=== PATIENT | female | born 1965 | race Caucasian/White ===

== ENCOUNTER 2017-01-31 11:02 | Emergency (ER) | payer BC ==
[~2017-01-31] VITALS: Ht 165.1 cm; Wt 62.0 kg
[2017-01-31 11:11] VITALS: BP 122/77; PULSE 84; RESP 16; TEMP 98.2; O2SAT 98
--- NOTE | 2017-01-31 11:27 | PD ---
HPI Chief Complaint: Headache Time Seen by Provider: 11:15 Travel History International Travel<30 days: No Contact w/Intl Traveler<30days: No Traveled to known affect area: No History of Present Illness HPI PATIENT ACTUALLY COMPLAINS OF LEFT FLANK PAIN, DENIES ANY DISCOLORATION TO URINE , IS ON ALENDRONATE FOR OSTEOPENIA, CAME SUDDENLY ON, PER THE HEADACHE SHE HAS H /O MIGRAINE AND TOOK HER MIGRAINE MEDICATION ALREADY, HER MANE IS NOW DOWN TO ...MAIN REASON FOR COMING IN WAS HER LEFT FLANK PAIN, WHICH IS UNUSUAL.. DESCRIBED SHARP, NONRADIATING, AND WORSEN WITH MOVEMENT....DENIES N/V/D/CP/ FEVER AT THIS POINT PFSH Past Medical History ?: Not Social History Tobacco Use: No (QUIT 1 YEAR AGO) Allergies-Medications (Allergen,Severity, Reaction): Coded Allergies: No Known Allergies (Unverified , 01/31/17) Reported Meds & Prescriptions Reported Meds & Active Scripts Active Reported Calcium (Calcium Carbonate) 600 Mg Tab 1 Tab PO DAILY One Daily Multivitamin (Multivitamin) 1 Each Tablet 1 Tab PO DAILY Sertraline (Sertraline HCl) 25 Mg Tab 25 Mg PO DAILY Bupropion HCl 75 Mg Tab 75 Mg PO BID Imitrex (Sumatriptan Succinate) 25 Mg Tab 25 Mg PO ONCE PRN If a satisfactory response has not been obtained at 2 hours, a second dose may be administered Review of Systems Except as stated in HPI: all other systems reviewed are Neg Genitourinary: Positive: Flank Pain (LEFT) Physical Exam Narrative GENERAL: SKIN: Warm and dry. HEAD: Atraumatic. Normocephalic. EYES: Pupils equal and round. No scleral icterus. No injection or drainage. ENT: No nasal bleeding or discharge. Mucous membranes pink and moist. NECK: Trachea midline. No JVD. CARDIOVASCULAR: Regular rate and rhythm. RESPIRATORY: No accessory muscle use. Clear to auscultation. Breath sounds equal bilaterally. GASTROINTESTINAL: Abdomen soft, non-tender, nondistended. Hepatic and splenic margins not palpable. MUSCULOSKELETAL: Extremities without clubbing, cyanosis, or edema. No obvious deformities. REPRODUCIBLE SHARP PAIN WITH PRESSURE ALONG LEFT HEMITRAPEZIUS NEUROLOGICAL: Awake and alert. No obvious cranial nerve deficits. Motor grossly within normal limits. Five out of 5 muscle strength in the arms and legs. Normal speech. PSYCHIATRIC: Appropriate mood and affect; insight and judgment normal. Data Data Last Documented VS Vital Signs Date Time Temp Pulse Resp B/P Pulse Ox O2 Delivery O2 Flow Rate FiO2 01/31/17 11:23 Room Air 01/31/17 11:11 98.2 84 16 122/77 98 Orders Urinalysis - C+S If Indicated (01/31/17 11:21) Ct Abd/Pel W/O Iv Contrast (01/31/17 11:21) Sodium Chloride 0.9% Flush (Ns Flush) (01/31/17 11:30) Labs Laboratory Tests Test 01/31/17 11:30 Urine Collection Type CLEAN CATCH Urine Color YELLOW Urine Turbidity CLEAR Urine pH 7.0 Urine Specific [place] 1.012 Urine Protein NEG mg/dL Urine Glucose (UA) NEG mg/dL Urine Ketones NEG mg/dL Urine Occult Blood NEG Urine Nitrite NEG Urine Bilirubin NEG Urine Leukocyte Esterase NEG Urine RBC 0-3 /hpf Urine Squamous Epithelial 0-5 /hpf Cells Microscopic Urinalysis Comment CULT NOT INDICATED Urine Collection Time 11:30 [facility] Medical Decision Making Medical Screen Exam Complete: Yes Emergency Medical Condition: Yes Medical Record Reviewed: Yes Differential Diagnosis AORTIC ISSUE V SPLENIC INJURY V RENAL STONES V PYELO Narrative Course UA NEG FOR UTI, CT NEG FOR AAA, OR AORTIC DISSECTION...ALSO NEG FOR SPLENIC INJURY NOR ANY RENAL STONES. Diagnosis Primary Impression: LEFT FLANK PAIN NOT OTHERWISE SPECIFIED Patient Instructions: General Instructions, Musculoskeletal Pain (ED) Scripts Cyclobenzaprine (Flexeril)10 Mg Tab10 Mg PO TID #21 TAB Ref 0 Prov:Fidencio Valladares MD 01/31/17 Codeine-Acetaminophen 30-300 mg Tab1 Tab PO Q4H PRN (PAIN) #24 TAB Ref 0 Prov:Fidencio Valladares MD 01/31/17 Disposition: 01 DISCHARGE HOME Condition: Stable Fidencio Valladares MD Jan 31, 2017 11:27
[2017-01-31] MEDS ORDERED: SODIUM CHLORIDE 0.9% FLUSH 10 ML FLUSH IVF PRN (11:30)
[2017-01-31] MEDS ORDERED: SERT25TA83 PO (11:30)
[2017-01-31] MEDS ORDERED: BUPR75TA PO (11:30)
[2017-01-31] MEDS ORDERED: CALC600T25 PO (11:30)
[2017-01-31] MEDS ORDERED: ONE-TAB14 PO (11:30)
[2017-01-31] MEDS ORDERED: IMIT25TA PO (11:30)
[2017-01-31 11:36] LABS: BLOOD, URINE NEG (NEG); GLUCOSE,URINE NEG (NEG); KETONE, URINE NEG (NEG); NITRITE,URINE NEG (NEG)
[2017-01-31 11:40] LABS: METHOD OF COLLECTION CLEAN CATCH; URINE COLOR YELLOW (YELLW/STRAW)
[2017-01-31 11:41] LABS: COMMENT (UR) CULT NOT INDICATED; CULTURE IF INDICATED CULT NOT INDICATED; RBC, URINE 0-3 /hpf (0-3); SQUAMOUS EPITHELIAL CELL URINE 0-5 /hpf (0-5)
--- NOTE | 2017-01-31 11:50 | RADHPO ---
EXAM DATE/TIME: 01/31/2017 11:26 [facility] COMPARISON: No previous studies available for comparison. INDICATIONS : Left flank pain for 2 days. ORAL CONTRAST: No oral contrast ingested. RADIATION DOSE: 9.22 CTDIvol (mGy) MEDICAL HISTORY : Migraines. SURGICAL HISTORY : None. ENCOUNTER: Initial ACUITY: 2 days PAIN SCALE: 5/10 LOCATION: Left flank TECHNIQUE: Volumetric scanning of the abdomen and pelvis was performed. Using automated exposure control and ad justment of the mA and/or kV according to patient size, radiation dose was kept as low as reasonably achievable to obtain optimal diagnostic quality images. FINDINGS: LOWER LUNGS: The visualized lower lungs are clear. LIVER: Homogeneous density without lesion. There is no dilation of the biliary tree. No calcified gallston es. SPLEEN: Normal size without lesion. PANCREAS: Within normal limits. KIDNEYS: Normal in size and shape. There is no mass, stone, or hydronephrosis. ADRENAL GLANDS: Within normal limits. VASCULAR: There is no aortic aneurysm. BOWEL/MESENTERY: The stomach, small bowel, and colon demonstrate no acute abnormality. There is no free intraperitone al air or fluid. ABDOMINAL WALL: Within normal limits. RETROPERITONEUM: There is no lymphadenopathy. BLADDER: No wall thickening or mass. REPRODUCTIVE: There is a left ovarian cyst/follicle measuring 13 mm. Uterus and right ovary have a normal appearanc e. INGUINAL: There is no lymphadenopathy or hernia. MUSCULOSKELETAL: No acute abnormality. CONCLUSION: No abnormality is identified to explain the clinical symptoms. No acute finding is visualized. Sadiq Perez MD on January 31, 2017 at 11:45 Board Certified Radiologist. This report was verified electronically.
[2017-01-31 12:00] VITALS: BP 118/75; PULSE 78; RESP 20; O2SAT 98
[2017-01-31] MEDS ORDERED: CODE30TA2 PO (12:57)
[2017-01-31] MEDS ORDERED: CYCL1TAB29 PO (12:57)
[2017-01-31] MEDS ORDERED: ORPHENADRINE INJ 60 MG/2 ML AMP IM ONE (13:00)
== END 2017-01-31 13:11 | disposition home or self-care (01) ==
LOC: PHED 11:02
DX: R10.9 Unspecified abdominal pain (principal)
CPT/HCPCS: 74176; 81001; 96372; 99285; J2360